=== PATIENT | male | born 1960 | race Caucasian/White ===

== ENCOUNTER 2018-11-14 23:53 | Inpatient (IN) | payer MEDICAID ==
[2018-11-15 00:32] LABS: % BASOPHILS 0.2 % (0.0-2.0); % EOSINOPHILS 0.3 % (0.0-5.0); % LYMPHOCYTES 8.4 % (20.0-50.0); % MONOCYTES 2.5 % (2.0-10.0); % NEUTROPHILS 88.6 % (40.0-80.0); HEMATOCRIT 43.5 % (41.0-60); HEMOGLOBIN 14.5 gm/dL (12-16); LYMPHOCYTE ABSOLUTE 1.3 Th/cmm (1.5-3.0); MEAN CELL VOLUME 86.2 fl (80-99); MEAN CORPUSCULAR HEMOGLOBIN 28.8 pg (26.0-30.0); MEAN CORPUSCULAR HGB CONC 33.4 pg (28.0-36.0); MONOCYTE ABSOLUTE 0.4 Th/cmm (0.3-1.0); NEUTROPHILE ABSOLUTE 13.5 Th/cmm (1.8-8.0); PLATELET COUNT 271 Th/cmm (150-400); RED BLOOD COUNT 5.05 Mil/cmm (4.30-5.70); RED CELL DISTRIBUTION WIDTH 13.3 % (11.5-20.0)
[2018-11-15 00:33] LABS: URINE BILIRUBIN SMALL (NEGATIVE); URINE BLOOD MODERATE (NEGATIVE); URINE GLUCOSE (UA) 100 mg/dL (NEGATIVE); URINE KETONE 40 mg/dL (NEGATIVE); URINE LEUKOCYTE ESTERASE NEGATIVE (NEGATIVE); URINE MICROSCOPIC INDICATED? YES; URINE NITRATE NEGATIVE (NEGATIVE); URINE PROTEIN 100 mg/dL (NEGATIVE); URINE UROBILINOGEN 0.2 E.U./dL (0.2 - 1.0)
[2018-11-15 00:40] LABS: WHITE BLOOD COUNT 15.2 Th/cmm (4.8-10.8)
[2018-11-15 00:44] LABS: URINE CLARITY SLIGHT HAZY (CLEAR); URINE COLOR YELLOW
[2018-11-15 00:46] LABS: ALB/GLOB RATIO 1.3 (1.0-1.8); ALBUMIN 3.9 gm/dL (4.2-5.5); ALKALINE PHOSPHATASE 66 U/L (34-104); BILIRUBIN,TOTAL 1.2 mg/dL (0.3-1.0); BUN - UREA NITROGEN 11 mg/dL (7-25); CALCIUM SERUM 9.5 mg/dL (8.6-10.3); CARBON DIOXIDE 20.5 mEq/L (21.0-31.0); CHLORIDE 99 mEq/L (98-107); CREATININE - SERUM 0.8 mg/dL (0.7-1.3); GFR AFRICAN-AMERICAN > 60.0 ml/min (>90); GFR NON AFRICAN-AMERICAN > 60.0 ml/min; GLUCOSE 115 mg/dL (70-105); POTASSIUM SERUM 3.5 mEq/L (3.5-5.1); SGOT 27 U/L (13-39); SGPT/ALT 54 U/L (7-52); SODIUM SERUM 130 mEq/L (136-145)
[2018-11-15] MEDS ORDERED: cefTRIAXone 2 GM in Sodium Chloride 0.9% 100 ML IV ONE (00:47)
[2018-11-15 01:08] LABS: URINE BACTERIA NONE SEEN /hpf (NONE SEEN); URINE EPITHELIAL CELLS RARE /lpf (FEW); URINE WBC 0-2 /hpf (0-5)
[2018-11-15 01:09] LABS: URINE SOURCE CLEAN CATCH
--- NOTE | 2018-11-15 01:16 | ED Physician Chart ---
ED Chief Complaint/HPI - Patient Information Date Seen:: 11/15/18 Time Seen:: 01:11 Chief Complaint:: abd pain History of Present Illness:: 58 yr old with diffuse abd pain for few days no nv Allergies:: Allergies Allergy/AdvReac Type Severity Reaction Status Date / Time No Known Allergies Allergy Verified 11/15/18 00:03 Vitals:: Vital Signs - 8 hr 11/14/18 23:55 Temp 99.4 F HR 85 RR 19 BP 155/91 O2 Sat % 94 ED Review of Systems - Review of Systems General/Constitutional: No fever Skin: No skin lesions Head: No headache Eyes: No loss of vision ENT: No earache Neck: No neck pain Cardio Vascular: No chest pain Pulmonary: No SOB GI: No nausea, No vomiting G/U: No dysuria Endocrine: No polyuria Psychiatric: No prior psych history, No depression ED Past Medical History - Past Medical History Past Medical History: Other Family Medical History - Family Member Mother History Unknown: Yes ED Physical Exam - Physical Examination General/Constitutional: Well-developed, well-nourished Eyes: Lids, conjuctiva normal ENMT: TM canals nl Neck: Nontender Respiratory: Nl effort/Exclusion Cardio Vascular: RRR GI: No tenderness/rebounding/guarding : No CVA tenderness Extremities: No tenderness or effusion Neuro/Psych: Alert/oriented ED Labs/Radiology/EKG Results - Lab Results Results: Laboratory Tests 11/15/18 11/15/18 11/15/18 00:00 00:20 00:20 WBC 15.2 H RBC 5.05 Hgb 14.5 Hct 43.5 MCV 86.2 MCH 28.8 MCHC Differential 33.4 RDW 13.3 Plt Count 271 MPV 7.5 Neutrophils % 88.6 H Lymphocytes % 8.4 L Monocytes % 2.5 Eosinophils % 0.3 Basophils % 0.2 Sodium 130 L Potassium 3.5 Chloride 99 Carbon Dioxide 20.5 L Anion Gap 14.0 BUN 11 Creatinine 0.8 Est GFR ( Amer) > 60.0 Est GFR (Non-Af Amer) > 60.0 BUN/Creatinine Ratio 13.8 Glucose 115 H Whole Bld Lactic Acid Calcium 9.5 Total Bilirubin 1.2 H AST 27 ALT 54 H Alkaline Phosphatase 66 Total Protein 7.0 Albumin 3.9 L Globulin 3.1 Albumin/Globulin Ratio 1.3 Lipase Urine Source CLEAN CATCH Urine Color YELLOW Urine Clarity SLIGHT HAZY Urine pH 6.0 Ur Specific [place] >= 1.030 Urine Protein 100 H Urine Glucose (UA) 100 H Urine Ketones 40 H Urine Blood MODERATE H Urine Nitrate NEGATIVE Urine Bilirubin SMALL H Urine Urobilinogen 0.2 Ur Leukocyte Esterase NEGATIVE Urine RBC 2-5 H Urine WBC 0-2 Ur Epithelial Cells RARE Urine Bacteria NONE SEEN 11/15/18 11/15/18 00:20 00:20 WBC RBC Hgb Hct MCV MCH MCHC Differential RDW Plt Count MPV Neutrophils % Lymphocytes % Monocytes % Eosinophils % Basophils % Sodium Potassium Chloride Carbon Dioxide Anion Gap BUN Creatinine Est GFR ( Amer) Est GFR (Non-Af Amer) BUN/Creatinine Ratio Glucose Whole Bld Lactic Acid 1.48 Calcium Total Bilirubin AST ALT Alkaline Phosphatase Total Protein Albumin Globulin Albumin/Globulin Ratio Lipase 32 Urine Source Urine Color Urine Clarity Urine pH Ur Specific [place] Urine Protein Urine Glucose (UA) Urine Ketones Urine Blood Urine Nitrate Urine Bilirubin Urine Urobilinogen Ur Leukocyte Esterase Urine RBC Urine WBC Ur Epithelial Cells Urine Bacteria ED Septic Shock - . Is Septic Shock (SBP<90, OR Lactate>4 mmol\L) present?: No - <6hrs of presentation: Vital Signs: Vital Signs - 8 hr 11/14/18 23:55 Temp 99.4 F HR 85 RR 19 BP 155/91 O2 Sat % 94 ED Reassessment (Disposition) - Reassessment Reassessment:: abd pain diffuse - Diagnosis Diagnosis:: as abobe - Patient Disposition Discharge/Transfer:: Home Condition at Disposition:: Stable
[2018-11-15] MEDS ORDERED: Sodium Chloride 0.9% 1,000 ML IV ONE (02:53)
[2018-11-15 04:24] VITALS: BP 125/73
[2018-11-15] MEDS: Sodium Chloride 0.9% 1,000 ML IV SCH ×2 (04:27→17:12)
[2018-11-15] MEDS ORDERED: cefTRIAXone 1 GM in Sodium Chloride 0.9% 50 ML IV SCH (08:00)
--- NOTE | 2018-11-15 08:45 | Diagnostic Imaging Report ---
CT scan abdomen and pelvis without intravenous contrast HISTORY: Pain Total DLP equals 628 CTDI equals 10.9 Axial sections were obtained from the xiphoid process down to the pubic symphysis. Limited sections the chest demonstrate normal heart size. Coronary calcification is noted. Pleural thickening along with parenchymal density noted in the left lower lobe. Changes may be chronic. Clinical correlation is needed. Mild pleural thickening also noted within the left lower hemithorax. Additional nonspecific parenchymal changes noted in the left lower lobe. The liver exhibits a bulbous contour. There is a decrease in overall hepatic parenchymal density consistent with fatty infiltration. The changes should be correlated with liver function tests. No focal lesions. The spleen appears normal. Slight haziness is noted about the pancreatic head region. Pancreatitis cannot be excluded. Clinical correlation and correlation with laboratory data is needed. No focal renal lesions. No calculi. No hydronephrosis intraluminal hyperdensity noted about the cecum and proximal ascending colon. The appendix appears normal. The exam of the pelvis demonstrates moderate enlargement of the prostate gland with encroachment on the floor of the urinary bladder. Atherosclerotic calcination seen in the aorta. Diffuse degenerative changes are noted throughout the spine. IMPRESSION: 1. Mild fullness and haziness about the pancreatic head. Changes related to pancreatitis cannot be excluded. Clinical correlation and correlation with laboratory data is needed. 2. Pleural and parenchymal changes within the right and left lower hemithoracic areas. Changes may be chronic. Pneumonia and/or atelectasis cannot be excluded. 3. Moderate enlargement of the prostate gland 4. Coronary artery and atherosclerotic vascular calcification 5. Findings suggesting hepatic fatty infiltration. The changes should be correlated with liver function tests.
--- NOTE | 2018-11-15 08:47 | Diagnostic Imaging Report ---
Portable chest x-ray HISTORY: Shortness of breath Heart size difficult to assess portable technique in a poor inspiration. Accentuation of interstitial markings in the right lower lobe. Faint parenchymal density noted in the left lower lobe which corresponds to changes noted on the earlier CT scan. The findings may be chronic. Pneumonia cannot be excluded. Clinical correlation is needed. IMPRESSION: 1. Parenchymal changes left lower lobe which corresponds to the findings noted on the earlier CT scan. These findings may be chronic. However, pneumonia cannot be excluded. Clinical correlation is needed.
--- NOTE | 2018-11-15 11:20 | History and Physical ---
History of Present Illness - HPI Chief Complaint: Abdominal pain and distension HPI: He refer that 2 days ago he eat and later started to have abdominal pain and abdominal distension. He denied Diarrhea. Vital Signs: Last Vital Signs Temp 97.7 F 11/15/18 08:15 Pulse 72 11/15/18 08:15 Resp 19 11/15/18 08:15 BP 122/76 11/15/18 08:15 Pulse Ox 94 11/15/18 08:15 Past Medical History Cardiovascular: Report: No Pertinent Hx Pulmonary: Report: No Pertinent Hx DOCTOR ASSISTANT: Report: No Pertinent Hx GI: Report: No Pertinent Hx Psych: Report: No Pertinent Hx Musculoskeletal: Report: No Pertinent Hx Rheumatologic: Report: No pertinent Hx Infectious Disease: Report: No Pertinent Hx Renal/: Report: No Pertinent Hx Endocrine: Report: No Pertinent Hx Dermatology: Report: No Pertinent Hx Family Medical History - Family Member Mother History Unknown: Yes Social History Smoke: No Alcohol: Occassional Drugs: None Lives: With Family Domestic Violence: Negative - Allergies Allergies/Adverse Reactions: Allergies Allergy/AdvReac Type Severity Reaction Status Date / Time No Known Allergies Allergy Verified 11/15/18 00:03 Review of Systems - Review of Systems Constitutional: Report: Fever, Chills Eyes: Report: No Significant ENT: Report: No Significant Respiratory: Report: No Significant Cardiovascular: Report: No Significant Gastrointestinal: Report: Abdominal Pain, Other (Abdominal distension) Genitourinary: Report: No Significant Musculoskeletal: Report: No Significant Skin: Report: No Significant Neurological: Report: No Significant Physical Exam - Physical Exam HEENT: Report: Ears Nose Throat within normal limits Neck: Report: Within normal limits Cardiovascular Systems: Report: Regular, Rate and Rhythm Respiratory: Report: Breath Sounds are within normal limits Abdomen: Report: Tender to palpation, Other (Distended, Bowel sound increased. ) Back: Report: Inspection of back is within normal limits. Extremities: Report: Non-tender to palpation. Skin: Report: Color of skin is within normal limits Neuro/Psych: Report: Mood affect is within normal limits - Lab Results All Lab Results last 24 hours: Laboratory Results - last 24 hr 11/15/18 11/15/18 11/15/18 00:00 00:20 00:20 WBC 15.2 H RBC 5.05 Hgb 14.5 Hct 43.5 MCV 86.2 MCH 28.8 MCHC Differential 33.4 RDW 13.3 Plt Count 271 MPV 7.5 Neutrophils % 88.6 H Lymphocytes % 8.4 L Monocytes % 2.5 Eosinophils % 0.3 Basophils % 0.2 Sodium 130 L Potassium 3.5 Chloride 99 Carbon Dioxide 20.5 L Anion Gap 14.0 BUN 11 Creatinine 0.8 Est GFR ( Amer) > 60.0 Est GFR (Non-Af Amer) > 60.0 BUN/Creatinine Ratio 13.8 Glucose 115 H Whole Bld Lactic Acid Calcium 9.5 Total Bilirubin 1.2 H AST 27 ALT 54 H Alkaline Phosphatase 66 Troponin I Total Protein 7.0 Albumin 3.9 L Globulin 3.1 Albumin/Globulin Ratio 1.3 Amylase Lipase Urine Source CLEAN CATCH Urine Color YELLOW Urine Clarity SLIGHT HAZY Urine pH 6.0 Ur Specific [place] >= 1.030 Urine Protein 100 H Urine Glucose (UA) 100 H Urine Ketones 40 H Urine Blood MODERATE H Urine Nitrate NEGATIVE Urine Bilirubin SMALL H Urine Urobilinogen 0.2 Ur Leukocyte Esterase NEGATIVE Urine RBC 2-5 H Urine WBC 0-2 Ur Epithelial Cells RARE Urine Bacteria NONE SEEN 11/15/18 11/15/18 11/15/18 00:20 00:20 02:00 WBC RBC Hgb Hct MCV MCH MCHC Differential RDW Plt Count MPV Neutrophils % Lymphocytes % Monocytes % Eosinophils % Basophils % Sodium Potassium Chloride Carbon Dioxide Anion Gap BUN Creatinine Est GFR ( Amer) Est GFR (Non-Af Amer) BUN/Creatinine Ratio Glucose Whole Bld Lactic Acid 1.48 Calcium Total Bilirubin AST ALT Alkaline Phosphatase Troponin I Total Protein Albumin Globulin Albumin/Globulin Ratio Amylase 65 Lipase 32 Urine Source Urine Color Urine Clarity Urine pH Ur Specific [place] Urine Protein Urine Glucose (UA) Urine Ketones Urine Blood Urine Nitrate Urine Bilirubin Urine Urobilinogen Ur Leukocyte Esterase Urine RBC Urine WBC Ur Epithelial Cells Urine Bacteria 11/15/18 02:00 WBC RBC Hgb Hct MCV MCH MCHC Differential RDW Plt Count MPV Neutrophils % Lymphocytes % Monocytes % Eosinophils % Basophils % Sodium Potassium Chloride Carbon Dioxide Anion Gap BUN Creatinine Est GFR ( Amer) Est GFR (Non-Af Amer) BUN/Creatinine Ratio Glucose Whole Bld Lactic Acid Calcium Total Bilirubin AST ALT Alkaline Phosphatase Troponin I 0.03 Total Protein Albumin Globulin Albumin/Globulin Ratio Amylase Lipase Urine Source Urine Color Urine Clarity Urine pH Ur Specific [place] Urine Protein Urine Glucose (UA) Urine Ketones Urine Blood Urine Nitrate Urine Bilirubin Urine Urobilinogen Ur Leukocyte Esterase Urine RBC Urine WBC Ur Epithelial Cells Urine Bacteria - Assessment Assessment: Patient is awake, alert, calm, in no acute distress. Dx: Gastroenteritis, PNA, possible pancreatitis. - Plan Plan: Patient is in IV NS, NPO, IV AN (change to Metronidazole and Levaquin), Consult with GI requested. Will continue to monitor.
[2018-11-15] MEDS: Levofloxacin 750mg/150mL 750 MG/150 ML BAG IV SCH (12:02)
[2018-11-15] MEDS: metroNIDAZOLE 500mg/NS 100mL 500 MG/100 ML BAG IV SCH ×2 (12:13→21:00)
[2018-11-16] MEDS: Sodium Chloride 0.9% 1,000 ML IV SCH (03:26)
[2018-11-16] MEDS: metroNIDAZOLE 500mg/NS 100mL 500 MG/100 ML BAG IV SCH ×3 (05:00→20:45)
[2018-11-16 06:28] LABS: % BASOPHILS 1.6 % (0.0-2.0); % LYMPHOCYTES 16.4 % (20.0-50.0); % MONOCYTES 5.4 % (2.0-10.0); % NEUTROPHILS 74.6 % (40.0-80.0); BASOPHILE ABSOLUTE 0.2 Th/cumm (0-0.2); EOSINOPHILE ABSOLUTE 0.2 Th/cmm (0.1-0.4); HEMOGLOBIN 11.9 gm/dL (12-16); LYMPHOCYTE ABSOLUTE 1.8 Th/cmm (1.5-3.0); MEAN CELL VOLUME 85.3 fl (80-99); MEAN CORPUSCULAR HEMOGLOBIN 28.9 pg (26.0-30.0); MEAN CORPUSCULAR HGB CONC 33.9 pg (28.0-36.0); MONOCYTE ABSOLUTE 0.6 Th/cmm (0.3-1.0); PLATELET COUNT 255 Th/cmm (150-400); RED BLOOD COUNT 4.11 Mil/cmm (4.30-5.70); RED CELL DISTRIBUTION WIDTH 12.8 % (11.5-20.0); WHITE BLOOD COUNT 10.8 Th/cmm (4.8-10.8)
[2018-11-16 06:55] LABS: ALB/GLOB RATIO 1.2 (1.0-1.8); ALBUMIN 3.1 gm/dL (4.2-5.5); ALKALINE PHOSPHATASE 54 U/L (34-104); ANION GAP 10.7 (7.0-16.0); BILIRUBIN,TOTAL 0.6 mg/dL (0.3-1.0); BUN - UREA NITROGEN 12 mg/dL (7-25); CALCIUM SERUM 8.6 mg/dL (8.6-10.3); CARBON DIOXIDE 21.8 mEq/L (21.0-31.0); CHLORIDE 110 mEq/L (98-107); CREATININE - SERUM 0.7 mg/dL (0.7-1.3); GFR AFRICAN-AMERICAN > 60.0 ml/min (>90); GFR NON AFRICAN-AMERICAN > 60.0 ml/min; GLUCOSE 96 mg/dL (70-105); POTASSIUM SERUM 3.5 mEq/L (3.5-5.1); SGOT 17 U/L (13-39); SGPT/ALT 29 U/L (7-52); SODIUM SERUM 139 mEq/L (136-145); TOTAL PROTEIN,SERUM 5.7 gm/dL (6.0-8.3)
[2018-11-16] MEDS: POLYETHYLENE GLYCOL 3350 17 GM PACK PO SCH (09:18)
[2018-11-16] MEDS: Pantoprazole 40 mg EC Tab PO SCH (09:18)
--- NOTE | 2018-11-16 12:06 | Consultation ---
DATE OF CONSULTATION: 11/16/2018 INPATIENT GASTROINTESTINAL CONSULTATION CONSULTING PHYSICIAN: Dr. Aleksandr Bell. REASON FOR CONSULTATION: Abdominal pain, possible pancreatitis and melena. HISTORY OF PRESENT ILLNESS: The patient is a 58-year-old male with no chronic past medical illness, admitted to the hospital with 3 days of epigastric and generalized abdominal pain, now with melena as well. The patient notes that his pain began suddenly 3 days prior to his admission. He reports the pain generalized in his abdomen. He has not vomited, but has felt nauseous. On presentation to the ER, the patient had a CT scan that showed some pancreatic haziness, although the lipase was normal. The patient has since been started on Levaquin and Flagyl and he has been able to tolerate a diet. However, he still complains of 8/10 abdominal pain. He then began having black colored stool yesterday and GI consultation is placed. PAST MEDICAL HISTORY: The patient denies chronic medical illnesses. PAST SURGICAL HISTORY: Denies abdominal surgery. FAMILY HISTORY: Noncontributory. SOCIAL HISTORY: The patient does not smoke, drink or use illicit drugs. ALLERGIES: No known drug allergies. REVIEW OF SYSTEMS: A 12-point review of systems was performed on the patient and is negative other than the pertinent positives mentioned in the history of present illness. CURRENT MEDICATIONS: Include TYLENOL, KETOROLAC, LEVAQUIN, FLAGYL, ZOFRAN, MIRALAX. PHYSICAL EXAMINATION: VITAL SIGNS: Blood pressure is 137/65, pulse 68 beats per minute, respiratory rate of 18, temperature 98.2. GENERAL: The patient is sitting upright in bed, alert and oriented x 3, in no apparent distress. HEENT: Normocephalic, atraumatic appearing head. Pupils are equal and reactive. Extraocular muscles appear to be intact. There are moist mucous membranes. NECK: Supple. No JVD or thyromegaly. CHEST: Clear to auscultation bilaterally. CARDIOVASCULAR: S1, S2 present. Regular rate and rhythm. ABDOMEN: There is some tenderness to palpation diffusely. There is no guarding or rebound or fluid distention. EXTREMITIES: No pitting edema. Pulses are present. SKIN: No jaundice. LABORATORY DATA: White blood cell count 10.8, hemoglobin 11.9, platelet count 255. Sodium 139, BUN 12, creatinine 0.7, total bilirubin 0.6, AST is 17, ALT is 29, lipase is 32. IMAGING: An abdominal and pelvic CT scan was done without contrast. This showed some haziness and fullness around the pancreatic head. Pancreatitis cannot be excluded. There are some pleural and parenchymal changes of the right and left lower lungs, which may be chronic, pneumonia could not be excluded. There is an enlargement of the prostate gland. IMPRESSION: This is a 58-year-old male with no chronic illness, admitted to the hospital with epigastric and generalized abdominal pain and melena. 1. Melena. 2. Mild anemia. 3. Abdominal pain. 4. CT scan showing possible pancreatitis. DISCUSSION: The differential diagnosis here does include a mild case of pancreatitis, but also includes infectious gastroenteritis or gastric peptic ulcer disease given the fact that he is now having black stool. Additionally, I think there is a low likelihood of pancreatic malignancy, although this should also be considered as well. Given the black color stool, the patient has been having a drop in hemoglobin and I think it would be prudent to do upper endoscopy to rule out peptic ulcer disease, gastric malignancy and this will be arranged for tomorrow. In the meantime, we will put the patient on PPI therapy and continue IV fluids. RECOMMENDATIONS: 1. Plan for EGD tomorrow in the GI lab. 2. PPI. 3. Trend hemoglobin, transfuse to keep above 7. 4. Continue IV fluid. 5. Add on CA 19-9. 6. If EGD is negative, can consider colonoscopy at a later date. I also would consider repeating the CT scan with contrast, maybe in a month to ensure that we are not missing the pancreatic malignancy if the workup here is negative. Thank you for allowing me to participate in his care. Please call with any questions. JOB# [id number]
[2018-11-16] MEDS: Levofloxacin 750mg/150mL 750 MG/150 ML BAG IV SCH (12:20)
--- NOTE | 2018-11-16 13:03 | General Progress Note ---
Subjective - Review of Systems Service Date: 11/16/18 Subjective: I am better Objective - Results Result Diagrams: 11/16/18 06:10 11/16/18 06:10 Recent Labs: Laboratory Last Values WBC 10.8 Th/cmm (4.8-10.8) 11/16/18 06:10 RBC 4.11 Mil/cmm (4.30-5.70) L 11/16/18 06:10 Hgb 11.9 gm/dL (12-16) L 11/16/18 06:10 Hct 35.0 % (41.0-60) L 11/16/18 06:10 MCV 85.3 fl (80-99) 11/16/18 06:10 MCH 28.9 pg (26.0-30.0) 11/16/18 06:10 MCHC Differential 33.9 pg (28.0-36.0) 11/16/18 06:10 RDW 12.8 % (11.5-20.0) 11/16/18 06:10 Plt Count 255 Th/cmm (150-400) 11/16/18 06:10 MPV 7.1 fl 11/16/18 06:10 Neutrophils % 74.6 % (40.0-80.0) 11/16/18 06:10 Lymphocytes % 16.4 % (20.0-50.0) L 11/16/18 06:10 Monocytes % 5.4 % (2.0-10.0) 11/16/18 06:10 Eosinophils % 2.0 % (0.0-5.0) 11/16/18 06:10 Basophils % 1.6 % (0.0-2.0) 11/16/18 06:10 Sodium 139 mEq/L (136-145) 11/16/18 06:10 Potassium 3.5 mEq/L (3.5-5.1) 11/16/18 06:10 Chloride 110 mEq/L (98-107) H 11/16/18 06:10 Carbon Dioxide 21.8 mEq/L (21.0-31.0) 11/16/18 06:10 Anion Gap 10.7 (7.0-16.0) 11/16/18 06:10 BUN 12 mg/dL (7-25) 11/16/18 06:10 Creatinine 0.7 mg/dL (0.7-1.3) 11/16/18 06:10 Est GFR ( Amer) > 60.0 ml/min (>90) 11/16/18 06:10 Est GFR (Non-Af Amer) > 60.0 ml/min 11/16/18 06:10 BUN/Creatinine Ratio 17.1 11/16/18 06:10 Glucose 96 mg/dL (70-105) 11/16/18 06:10 Whole Bld Lactic Acid 1.48 mmol/L (0.60-1.99) 11/15/18 00:20 Calcium 8.6 mg/dL (8.6-10.3) 11/16/18 06:10 Total Bilirubin 0.6 mg/dL (0.3-1.0) 11/16/18 06:10 AST 17 U/L (13-39) 11/16/18 06:10 ALT 29 U/L (7-52) 11/16/18 06:10 Alkaline Phosphatase 54 U/L (34-104) 11/16/18 06:10 Troponin I 0.03 ng/mL (0.01-0.05) 11/15/18 02:00 Total Protein 5.7 gm/dL (6.0-8.3) L 11/16/18 06:10 Albumin 3.1 gm/dL (4.2-5.5) L 11/16/18 06:10 Globulin 2.6 gm/dL 11/16/18 06:10 Albumin/Globulin Ratio 1.2 (1.0-1.8) 11/16/18 06:10 Amylase 65 U/L (29-103) 11/15/18 02:00 Lipase 32 U/L (11-82) 11/15/18 00:20 Urine Source CLEAN CATCH 11/15/18 00:00 Urine Color YELLOW 11/15/18 00:00 Urine Clarity SLIGHT HAZY (CLEAR) 11/15/18 00:00 Urine pH 6.0 (4.6 - 8.0) 11/15/18 00:00 Ur Specific [place] >= 1.030 (1.005-1.030) 11/15/18 00:00 Urine Protein 100 mg/dL (NEGATIVE) H 11/15/18 00:00 Urine Glucose (UA) 100 mg/dL (NEGATIVE) H 11/15/18 00:00 Urine Ketones 40 mg/dL (NEGATIVE) H 11/15/18 00:00 Urine Blood MODERATE (NEGATIVE) H 11/15/18 00:00 Urine Nitrate NEGATIVE (NEGATIVE) 11/15/18 00:00 Urine Bilirubin SMALL (NEGATIVE) H 11/15/18 00:00 Urine Urobilinogen 0.2 E.U./dL (0.2 - 1.0) 11/15/18 00:00 Ur Leukocyte Esterase NEGATIVE (NEGATIVE) 11/15/18 00:00 Urine RBC 2-5 /hpf (0-5) H 11/15/18 00:00 Urine WBC 0-2 /hpf (0-5) 11/15/18 00:00 Ur Epithelial Cells RARE /lpf (FEW) 11/15/18 00:00 Urine Bacteria NONE SEEN /hpf (NONE SEEN) 11/15/18 00:00 - Physical Exam Vitals and I&O: Vital Signs Temp 98.5 F 11/16/18 12:00 Pulse 70 11/16/18 12:00 Resp 18 11/16/18 12:00 BP 127/78 11/16/18 12:00 Pulse Ox 95 11/16/18 12:00 Intake & Output 11/15/18 11/16/18 11/16/18 18:59 06:59 18:59 Intake Total 1550 1856.667 300 Output Total 5 Balance 1545 1856.667 300 Weight (lbs) 81.647 kg 81.647 kg 81.647 kg Intake: Intake, IV Amount 1250 1456.667 Levofloxacin 750mg/150mL 150 750 mg In 150 ml @ 100 mls/hr IV Q24HR [facility] Rx#: [id number] Sodium Chloride 0.9% 1, 1000 1256.667 000 ml @ 100 mls/hr IV . Q10H [facility] Rx#:[id number] metroNIDAZOLE 500mg/NS 100 200 100mL 500 mg In 100 ml @ 100 mls/hr IV Q8HR [facility] Rx #:[id number] Oral 300 400 300 Output: Urine 3 Stool 2 Other: # Voids 3 # Bowel Movements 0 Weight Source Bedscale Bedscale Bedscale Active Medications: Current Medications Acetaminophen (Tylenol) 650 mg PO Q6H PRN PRN Reason: Fever > 101 Stop: 01/14/19 20:37 Last Admin: 11/16/18 03:24 Dose: 650 mg Sodium Chloride (Nacl 0.9%) 1,000 mls @ 100 mls/hr IV .Q10H [facility] Stop: 01/14/19 05:59 Last Infusion: 11/16/18 06:00 Dose: 100 mls/hr Metronidazole (Flagyl) 500 mg in 100 mls @ 100 mls/hr IV Q8HR [facility] Stop: 01/14/19 12:59 Last Infusion: 11/16/18 06:00 Dose: Infused Levofloxacin (Levaquin Pb) 750 mg in 150 mls @ 100 mls/hr IV Q24HR [facility] Stop: 01/14/19 11:29 Last Admin: 11/16/18 12:20 Dose: 100 mls/hr Ketorolac Tromethamine (Toradol) 30 mg IVP Q6H PRN PRN Reason: Pain (Moderate) Stop: 01/14/19 04:59 Last Admin: 11/16/18 10:17 Dose: 30 mg Ondansetron HCl (Zofran) 4 mg IV Q4H PRN PRN Reason: Nausea / Vomiting Stop: 01/14/19 20:39 Last Admin: 11/15/18 21:21 Dose: 4 mg Pantoprazole Sodium (Protonix) 40 mg PO DAILY [facility] Stop: 01/15/19 08:59 Last Admin: 11/16/18 09:18 Dose: 40 mg Polyethylene Glycol (Miralax) 17 gm PO DAILY [facility] Stop: 01/15/19 08:59 Last Admin: 11/16/18 09:18 Dose: 17 gm General: Alert, No acute distress HEENT: Atraumatic Neck: Supple Cardiovascular: Regular rate Lungs: Clear to auscultation Abdomen: Bowel sounds, Soft, Other (Non tender BS increased) Extremities: Other (No edema) Neurological: Normal gait, Normal speech Psych/Mental Status: Mental status NL Assessment/Plan - Assessment Assessment: Patient is awake, alert, calm, in no acute distress. Yesterday and today He had several black diarrheic evacuation, Hg drop, WBC normal. Dx: Gastroenteritis, PNA, possible pancreatitis. - Plan Plan: Patient is in IV NS, NPO, IV AN (change to Metronidazole and Levaquin), follow by GI, possible upperm endoscopy tomorrow. Will continue to monitor.
[2018-11-17] MEDS: Sodium Chloride 0.9% 1,000 ML IV SCH (04:11)
[2018-11-17] MEDS: metroNIDAZOLE 500mg/NS 100mL 500 MG/100 ML BAG IV SCH ×2 (04:11→16:29)
[2018-11-17 05:39] LABS: HEMATOCRIT 35.2 % (41.0-60); HEMOGLOBIN 11.9 gm/dL (12-16); MEAN CELL VOLUME 85.5 fl (80-99); MEAN CORPUSCULAR HEMOGLOBIN 28.9 pg (26.0-30.0); MEAN CORPUSCULAR HGB CONC 33.7 pg (28.0-36.0); PLATELET COUNT 288 Th/cmm (150-400); RED BLOOD COUNT 4.12 Mil/cmm (4.30-5.70); RED CELL DISTRIBUTION WIDTH 12.8 % (11.5-20.0); WHITE BLOOD COUNT 10.4 Th/cmm (4.8-10.8)
[2018-11-17 05:55] LABS: INR 0.98 (0.5-1.4)
[2018-11-17 05:56] LABS: ALB/GLOB RATIO 1.2 (1.0-1.8); ALBUMIN 3.1 gm/dL (4.2-5.5); ALKALINE PHOSPHATASE 56 U/L (34-104); ANION GAP 12.8 (7.0-16.0); BILIRUBIN,TOTAL 0.5 mg/dL (0.3-1.0); BUN - UREA NITROGEN 8 mg/dL (7-25); CALCIUM SERUM 8.7 mg/dL (8.6-10.3); CARBON DIOXIDE 20.4 mEq/L (21.0-31.0); CHLORIDE 109 mEq/L (98-107); CREATININE - SERUM 0.7 mg/dL (0.7-1.3); GFR AFRICAN-AMERICAN > 60.0 ml/min (>90); GFR NON AFRICAN-AMERICAN > 60.0 ml/min; GLUCOSE 86 mg/dL (70-105); POTASSIUM SERUM 3.2 mEq/L (3.5-5.1); SGOT 16 U/L (13-39); SGPT/ALT 25 U/L (7-52); SODIUM SERUM 139 mEq/L (136-145); TOTAL PROTEIN,SERUM 5.7 gm/dL (6.0-8.3)
[2018-11-17] MEDS ORDERED: Potassium Phosphate 20 MMOLE in Sodium Chloride 0.9% 250 ML IV ONE (06:33)
[2018-11-17 07:28] LABS: BAND NEUTROPHILE 2 % (0-10); BASOPHIL 0 % (0-3); EOSINOPHIL 2 % (0-5); LYMPHOCYTE 21 % (20-50); MONOCYTE 7 % (2-10); NEUTROPHILS 68 % (40-80)
[2018-11-17] MEDS: Pantoprazole 40 mg EC Tab PO SCH (08:41)
--- NOTE | 2018-11-17 08:41 | General Progress Note ---
Subjective - Review of Systems Service Date: 11/17/18 Subjective: I am ok Objective - Results Result Diagrams: 11/17/18 04:40 11/17/18 04:40 Recent Labs: Laboratory Last Values WBC 10.4 Th/cmm (4.8-10.8) 11/17/18 04:40 RBC 4.12 Mil/cmm (4.30-5.70) L 11/17/18 04:40 Hgb 11.9 gm/dL (12-16) L 11/17/18 04:40 Hct 35.2 % (41.0-60) L 11/17/18 04:40 MCV 85.5 fl (80-99) 11/17/18 04:40 MCH 28.9 pg (26.0-30.0) 11/17/18 04:40 MCHC Differential 33.7 pg (28.0-36.0) 11/17/18 04:40 RDW 12.8 % (11.5-20.0) 11/17/18 04:40 Plt Count 288 Th/cmm (150-400) 11/17/18 04:40 MPV 7.9 fl 11/17/18 04:40 Add Manual Diff YES 11/17/18 04:40 Neutrophils % 74.6 % (40.0-80.0) 11/16/18 06:10 Band Neutrophils % 2 % (0-10) 11/17/18 04:40 Lymphocytes % 16.4 % (20.0-50.0) L 11/16/18 06:10 Monocytes % 5.4 % (2.0-10.0) 11/16/18 06:10 Eosinophils % 2.0 % (0.0-5.0) 11/16/18 06:10 Basophils % 1.6 % (0.0-2.0) 11/16/18 06:10 Neutrophils (Manual) 68 % (40-80) 11/17/18 04:40 Lymphocytes 21 % (20-50) 11/17/18 04:40 Monocytes 7 % (2-10) 11/17/18 04:40 Eosinophils 2 % (0-5) 11/17/18 04:40 Basophils 0 % (0-3) 11/17/18 04:40 PT 10.2 SECONDS (9.5-11.5) 11/17/18 04:40 INR 0.98 (0.5-1.4) 11/17/18 04:40 Sodium 139 mEq/L (136-145) 11/17/18 04:40 Potassium 3.2 mEq/L (3.5-5.1) L 11/17/18 04:40 Chloride 109 mEq/L (98-107) H 11/17/18 04:40 Carbon Dioxide 20.4 mEq/L (21.0-31.0) L 11/17/18 04:40 Anion Gap 12.8 (7.0-16.0) 11/17/18 04:40 BUN 8 mg/dL (7-25) 11/17/18 04:40 Creatinine 0.7 mg/dL (0.7-1.3) 11/17/18 04:40 Est GFR ( Amer) > 60.0 ml/min (>90) 11/17/18 04:40 Est GFR (Non-Af Amer) > 60.0 ml/min 11/17/18 04:40 BUN/Creatinine Ratio 11.4 11/17/18 04:40 Glucose 86 mg/dL (70-105) 11/17/18 04:40 Whole Bld Lactic Acid 1.48 mmol/L (0.60-1.99) 11/15/18 00:20 Calcium 8.7 mg/dL (8.6-10.3) 11/17/18 04:40 Total Bilirubin 0.5 mg/dL (0.3-1.0) 11/17/18 04:40 AST 16 U/L (13-39) 11/17/18 04:40 ALT 25 U/L (7-52) 11/17/18 04:40 Alkaline Phosphatase 56 U/L (34-104) 11/17/18 04:40 Troponin I 0.03 ng/mL (0.01-0.05) 11/15/18 02:00 Total Protein 5.7 gm/dL (6.0-8.3) L 11/17/18 04:40 Albumin 3.1 gm/dL (4.2-5.5) L 11/17/18 04:40 Globulin 2.6 gm/dL 11/17/18 04:40 Albumin/Globulin Ratio 1.2 (1.0-1.8) 11/17/18 04:40 Amylase 65 U/L (29-103) 11/15/18 02:00 Lipase 32 U/L (11-82) 11/15/18 00:20 Urine Source CLEAN CATCH 11/15/18 00:00 Urine Color YELLOW 11/15/18 00:00 Urine Clarity SLIGHT HAZY (CLEAR) 11/15/18 00:00 Urine pH 6.0 (4.6 - 8.0) 11/15/18 00:00 Ur Specific [place] >= 1.030 (1.005-1.030) 11/15/18 00:00 Urine Protein 100 mg/dL (NEGATIVE) H 11/15/18 00:00 Urine Glucose (UA) 100 mg/dL (NEGATIVE) H 11/15/18 00:00 Urine Ketones 40 mg/dL (NEGATIVE) H 11/15/18 00:00 Urine Blood MODERATE (NEGATIVE) H 11/15/18 00:00 Urine Nitrate NEGATIVE (NEGATIVE) 11/15/18 00:00 Urine Bilirubin SMALL (NEGATIVE) H 11/15/18 00:00 Urine Urobilinogen 0.2 E.U./dL (0.2 - 1.0) 11/15/18 00:00 Ur Leukocyte Esterase NEGATIVE (NEGATIVE) 11/15/18 00:00 Urine RBC 2-5 /hpf (0-5) H 11/15/18 00:00 Urine WBC 0-2 /hpf (0-5) 11/15/18 00:00 Ur Epithelial Cells RARE /lpf (FEW) 11/15/18 00:00 Urine Bacteria NONE SEEN /hpf (NONE SEEN) 11/15/18 00:00 - Physical Exam Vitals and I&O: Vital Signs Temp 97.9 F 11/17/18 04:00 Pulse 62 11/17/18 04:00 Resp 18 11/17/18 04:00 BP 141/77 11/17/18 04:00 Pulse Ox 96 11/17/18 04:00 Intake & Output 11/16/18 11/17/18 11/17/18 18:59 06:59 18:59 Intake Total 2510.000 800 Output Total 600 Balance 2510.000 200 Weight (lbs) 81.647 kg 81.647 kg Intake: Intake, IV Amount 910.000 100 Levofloxacin 750mg/150mL 66.667 750 mg In 150 ml @ 100 mls/hr IV Q24HR [facility] Rx#: [id number] Sodium Chloride 0.9% 1, 743.333 000 ml @ 100 mls/hr IV . Q10H [facility] Rx#:[id number] metroNIDAZOLE 500mg/NS 100 100 100mL 500 mg In 100 ml @ 100 mls/hr IV Q8HR [facility] Rx #:[id number] Oral 1600 700 Output: Urine 600 Other: # Voids 3 3 # Bowel Movements 2 1 Weight Source Bedscale Bedscale Active Medications: Current Medications Acetaminophen (Tylenol) 650 mg PO Q6H PRN PRN Reason: Fever > 101 Stop: 01/14/19 20:37 Last Admin: 11/16/18 20:32 Dose: 650 mg Sodium Chloride (Nacl 0.9%) 1,000 mls @ 100 mls/hr IV .Q10H [facility] Stop: 01/14/19 05:59 Last Admin: 11/17/18 04:11 Dose: 100 mls/hr Metronidazole (Flagyl) 500 mg in 100 mls @ 100 mls/hr IV Q8HR [facility] Stop: 01/14/19 12:59 Last Admin: 11/17/18 04:11 Dose: 100 mls/hr Levofloxacin (Levaquin Pb) 750 mg in 150 mls @ 100 mls/hr IV Q24HR [facility] Stop: 01/14/19 11:29 Last Infusion: 11/16/18 13:00 Dose: 0 mls/hr Potassium Phosphate 20 mmole/ (Sodium Chloride) 256.6667 mls @ 42.5 mls/hr IV X1 ONE Stop: 11/17/18 12:35 Last Admin: 11/17/18 07:31 Dose: 42.5 mls/hr Ketorolac Tromethamine (Toradol) 30 mg IVP Q6H PRN PRN Reason: Pain (Moderate) Stop: 01/14/19 04:59 Last Admin: 11/16/18 20:49 Dose: 30 mg Ondansetron HCl (Zofran) 4 mg IV Q4H PRN PRN Reason: Nausea / Vomiting Stop: 01/14/19 20:39 Last Admin: 11/15/18 21:21 Dose: 4 mg Pantoprazole Sodium (Protonix) 40 mg PO DAILY KARMA Stop: 01/15/19 08:59 Last Admin: 11/16/18 09:18 Dose: 40 mg Polyethylene Glycol (Miralax) 17 gm PO DAILY KARMA Stop: 01/15/19 08:59 Last Admin: 11/16/18 09:18 Dose: 17 gm General: Alert, No acute distress HEENT: Atraumatic Neck: Supple Cardiovascular: Regular rate Lungs: Clear to auscultation Abdomen: Bowel sounds, Soft, Other (Non tender BS increased) Extremities: Other (No edema) Neurological: Normal gait, Normal speech Psych/Mental Status: Mental status NL Assessment/Plan - Assessment Assessment: Patient is awake, alert, calm, in no acute distress. Today there is no report of diarrhea, Hg stable, WBC normal. Dx: Gastroenteritis, PNA, possible pancreatitis. - Plan Plan: Patient is in IV NS, NPO, IV AN (change to Metronidazole and Levaquin), follow by GI, upper endoscopy will be done today. Will continue to monitor.
[2018-11-17] MEDS: POLYETHYLENE GLYCOL 3350 17 GM PACK PO SCH (08:42)
[2018-11-17] MEDS: Levofloxacin 750mg/150mL 750 MG/150 ML BAG IV SCH (11:49)
[2018-11-17] MEDS ORDERED: Propofol 10 mg/mL 20mL Vial **SURGERY USE ONLY IV ONE (13:20)
[2018-11-17] MEDS ORDERED: Lidocaine 2% Gel 5 mL TP ONE (13:20)
--- NOTE | 2018-11-17 14:28 | Operative Report ---
DATE OF SURGERY: 11/17/2018 PROCEDURE PERFORMED: EGD with biopsy. PREOPERATIVE DIAGNOSES: 1. Abdominal pain. 2. Melena. 3. Fullness around the pancreatic head. POSTOPERATIVE DIAGNOSES: 1. Mild gastritis. 2. No obvious duodenal ulcer or gastric ulcer seen. HISTORY OF PRESENT ILLNESS: This is a 58-year-old male with no chronic illness who was admitted for epigastric and generalized abdominal pain as well as an episode of melena. The patient had a CT scan without contrast that shows some haziness and fullness around the pancreatic head. The patient also has some report of melena and very mild anemia with hemoglobin to 11.9. EGD was chosen for further evaluation, diagnosis, and management. CONSENT: Informed consent was obtained from the patient after explaining the risks, benefits and alternatives to the procedure, which were understood and so stated. SEDATION: Per anesthesia. EGD: While the patient was in the left lateral decubitus position, a GIF-H180 scope was introduced through the patient's mouth and advanced under direct visualization into the esophagus, into the stomach, then advanced up to the second, third and even fourth portion of the duodenum. Here, the scope was withdrawn carefully examining the color, texture, anatomy, and the mucosa. The duodenum appeared normal. There was some prominence that could be noted at the ampulla papilla with a large intraduodenal segment of the common bile duct; however, could not necessarily ascertain any pathology. The scope was then brought back to the gastric body. Retroflexion was performed, which was normal. The scope was straightened forward and further attention was paid to the gastric antrum, which had evidence of mild gastritis. Biopsies were obtained for both H. pylori and YONY test. The stomach was decompressed. The scope was brought back to the GE junction, which was present at 40 cm from the incisors. There was no evidence of any esophagitis. The scope was withdrawn. The patient tolerated the procedure well. RECOMMENDATIONS: 1. I would recommend a dedicated CT of the abdomen and pelvis, with pancreatic protocol, which could be done as an outpatient. 2. Consider other further workup if patient is having chronic GI symptoms. No further recommendations otherwise at this time. Okay to advance diet. Thank you for allowing us to participate in this patient's care. JOB# [id number]
--- NOTE | 2018-11-18 08:28 | Discharge Summary ---
General Discharge Summary - Discharge Summary Date of Admission: 11/15/18 Admitting Diagnosis: Gastroentiritis, PNA, Possible pancreatitis Discharge Date: 11/17/18 Discharge Diagnosis: Gastroenteritis, Gastritis, Laboratory Findings: Laboratory Results - last 24 hr 11/17/18 12:04 POC Glucose 80 Hospital Course: Patient respoded to treatment, abdominal pain improved, patient tolerated feeding. WBC became normal. Treatment: Patient was started in IV NS, NPO, Pain control, IV AB, Patient was follow by GI , Upper endoscopy was done. Condition at Discharge: Stable Disposition: PT DISCHARGED HOME Activity: As Tolerated Discharge Diet: Regular Consults and Follow-Up: not on staff,PCP is [Primary Care Provider] - Aleksandr Bell [Family Provider] - Consulting Speciality: GI, Other (PCP) Instructions: Gastritis, Adult, [id number]
--- NOTE | 2018-11-19 12:27 | Pathology Report ---
[id number] Collection Date: 11/17/2018 Surgeon: Dr. Edwardo Sanford Specimen Description: Gastric biopsy. Gross Description: Received in formalin are two rosenbaum soft tissue fragments ranging from 0.1 to 0.2 cm in greatest dimension. Totally submitted in one cassette. Microscopic Description: The histologic sections show gastric mucosa with mild chronic inflammation present consisting of scattered lymphocytes and plasma cells. The Giemsa stain shows no evidence for Helicobacter pylori. Diagnosis: 1. Mild chronic gastritis, gastric biopsy. 2. The Giemsa stain is negative for Helicobacter pylori. [facility]# [id number] [facility]
== END 2018-11-17 18:48 | disposition home or self-care (01) | DRG 241 ==
LOC: ER 23:53 → MSI 11-15 03:52
PROVIDERS: ADMIT General Practice; ATTEND General Practice
PROC: 0DB68ZX Excision of Stomach, Via Natural or Artificial Opening Endoscopic, Diagnostic (ICD-10-PCS; principal; 2018-11-17)
DX: K29.71 Gastritis, unspecified, with bleeding (principal); J18.9 Pneumonia, unspecified organism; K85.90 Acute pancreatitis without necrosis or infection, unspecified; K52.9 Noninfective gastroenteritis and colitis, unspecified; K82.8 Other specified diseases of gallbladder; D64.9 Anemia, unspecified
CPT/HCPCS: 36415-UA; 71045-TC; 80053-TC; 81001-TC; 82150-TC; 82948-90; 83605; 83690-TC; 84484-TC; 85007-TC; 85025-TC; 85610-TC; 87086-90; 87338-TC; 90799; 93005; J0696; J1885; J1956; J2405; J2704; J7030; Z7610